=== PATIENT | male | born 1970 | race Caucasian/White ===

== ENCOUNTER 2018-06-19 16:02 | Outpatient (RCR) | payer BC ==
[~2018-06-19 16:02] MED LIST: CITA-145 PO
--- NOTE | 2018-06-20 16:04 | RADIOLOGY IMAGING REPORT ---
FACILITY: [facility] - [place] PATIENT NAME: Tomer Galindo : 1970 MR: [id number] V: [id number] EXAM DATE: ORDERING PHYSICIAN: KATHY BHAKTA TECHNOLOGIST: Location: [facility] [place] Patient: Tomer Galindo : 1970 Visit/Account:[id number] Date of Sevice: 06/20/2018 Exam type: US BIOPSY LOC/INJ THYROID History: Large complex right thyroid nodule Comparison: June 04, 2018. Findings: Informed consent was obtained. The right-sided the patient's neck was prepped and draped usual steri le fashion. Local anesthesia was accomplished 1% lidocaine. Under sonographic guidance four 25-gaug e FNA biopsies were obtained through the large complex nodule in the right lobe the thyroid gland. T he samples were given to the pharmacy technologist for processing. The procedure was accomplished w ithout apparent complication. IMPRESSION: 1. Successful sonographically guided right-sided thyroid biopsy Report Dictated By: Heidi Ramos MD at 06/20/2018 3:59 PM Report E-Signed By: Heidi Ramos MD at 06/20/2018 4:00 PM WSN:[email or web address]
== END 2018-06-20 18:00 | disposition home or self-care (01) ==
LOC: US 16:02 → EDSTATUS 06-20 16:02 → US 06-20 18:00
PROVIDERS: ATTEND Family Medicine
DX: E07.89 Other specified disorders of thyroid (principal)
CPT/HCPCS: 10005; 36415; 76942; 85610; 88104; 88172

== ENCOUNTER 2018-08-04 02:44 | Observation (INO) | payer BC ==
[~2018-08-04] VITALS: Ht 170.2 cm; Wt 85.3 kg
[2018-08-04] VITALS (18 sets, daily range): BP systolic 83–109; BP diastolic 51–78
[2018-08-04] MEDS ORDERED: METOCLOPRAMIDE 10 MG/2 ML SDV ONE (08:01)
[2018-08-04] MEDS ORDERED: LIDOCAINE MPF 1% 5 ML VIAL ONE (08:01)
[2018-08-04] MEDS ORDERED: PROPOFOL EMUL(*) 10MG/ML 20 ML 20 ML ONE (08:01)
[2018-08-04] MEDS ORDERED: ONDANSETRON 4 MG/2 ML VIAL ONE (08:01)
[2018-08-04] MEDS ORDERED: DEXAMETHASONE SOD 4 MG/ML VIAL ONE (08:02)
[2018-08-04 10:51] LABS: PLATELET COUNT, AUTOMATED 275 K/uL (150-450)
[2018-08-04] MEDS ORDERED: MIDAZOLAM 2 MG/2 ML VIAL IVP PRN (11:00)
[2018-08-04] MEDS ORDERED: FAMOTIDINE 20 MG TAB PO ONE (11:00)
[2018-08-04] MEDS ORDERED: LIDOCAINE/SOD BICARB 8.4% SYR ID ONE (11:00)
[2018-08-04] MEDS ORDERED: NORMOSOL R SOLN(*) 1000 ML BAG 1,000 ML IV PRN (11:00)
[2018-08-04] MEDS ORDERED: ceFAZolin(*) 2GM/D5W 50ML 50 ML IVPB ONE (11:10)
[2018-08-04] MEDS ORDERED: fentaNYL CITR 250 MCG/5 ML AMP ONE (11:24)
[2018-08-04] MEDS ORDERED: LIDO/EPI 1% MDV 1:100,000 20ML INFIL ONE (12:19)
[2018-08-04] MEDS ORDERED: LR(*) 1000 ML BAG 1,000 ML IV PRN (14:12)
[2018-08-04] MEDS ORDERED: PROMETHAZINE 25 MG/ML 1 ML AMP IVP PRN (14:15)
[2018-08-04] MEDS ORDERED: ACETAMINOPHEN 325 MG TAB PO PRN (14:15)
[2018-08-04] MEDS ORDERED: MORPHINE 2 MG/ML SYR IVP PRN (14:15)
[2018-08-04] MEDS ORDERED: ONDANSETRON 4 MG ODT TABDP SL PRN (14:15)
--- NOTE | 2018-08-04 14:15 | Post Operative Note ---
Operative Note - ENT Operative Day Date: Aug 04, 2018 Physicians Surgeon: James Biology Laboratory Assistant: Bashir Anesthesia: GETA Diagnosis Pre-Op Diagnosis: uninodular goiter Post-Op Diagnosis: same Procedure Procedure(s): right thyroid lobectomy Specimen Removed:(Maybe N/A): right thyroid lobe and isthmus Complications: none Fluids Fluids: see anesthesia note Estimated Blood Loss: 100 ml RENE HERCULES JR, MD Aug 04, 2018 14:15
[2018-08-04] MEDS ORDERED: PROMETHAZINE 25 MG/ML 1 ML AMP ONE (14:37)
[2018-08-04] MEDS ORDERED: fentaNYL CITR 100 MCG/2 ML AMP ONE (14:41)
--- NOTE | 2018-08-04 15:18 | OPERATIVE REPORT 1 ---
EVENT DATE: August 04, 2018 SURGEON: Davin Ramirez MD ANESTHESIOLOGIST: Kevin Earl MD ANESTHESIA: General endotracheal. HRIS ADMINISTRATOR: Ivette Camejo. PREOPERATIVE DIAGNOSIS Right uninodular goiter. POSTOPERATIVE DIAGNOSIS Right uninodular goiter. PROCEDURE PERFORMED Right thyroid lobectomy and isthmusectomy. INDICATIONS Please refer to the preoperative note. DESCRIPTION OF PROCEDURE The patient was positively identified in the preoperative note. The patient was positively identified in the preoperative area. He was accompanied there by his . Risks again explained, including but were not limited to bleeding, infection, injury to the recurrent laryngeal nerve transient or permanent, dysphonia, injury to the parathyroid glands transient or permanent, hypocalcemia, and those associated with anesthesia. He acknowledged understanding of those risks. He was then brought back to the operative suite, placed supine on the operative table, and anesthesia was administered. Once asleep, the patient was positioned, then prepped and draped in the usual sterile fashion. A 5 cm incision was planned in the favorable neck crease overlying the thyroid gland. Approximately 1 cc of 1% lidocaine with epinephrine was infiltrated. The aforementioned incision was then made with a 15 blade. The underlying subcutaneous tissue was then dissected with Bovie electrocautery. The platysmal muscle identified and divided with Bovie electrocautery. The subplatysmal flaps were elevated superior to the level of the thyroid notch and inferiorly to the level of the sternal notch. Strap musculature was identified and divided along the median raphe. I carefully elevated the strap musculature off of the right thyroid lobe. This was found to be markedly enlarged. The superior pole of vessels were skeletonized and come across with the harmonic scalpel. I then carefully dissected the lobe from the surrounding connective tissue. Both parathyroid glands were felt to be identified and preserved in- situ. I then came across the inferior pole vessels. I then rotated the lobe medially, identified the recurrent laryngeal nerve and traced it to its entrance into the trachea. I then divided the lobe from the trachea at the Sharpe's ligament. I then divided the left lobe from the isthmus with the harmonic scalpel. This was sent for frozen section. This was consistent with a benign goiter. The wound was then copiously irrigated with normal saline solution. A Valsalva maneuver was performed. Hemostasis was assumed. A small piece of Fibrillar Surgicel was placed in the wound bed. A Tam-Clay drain was placed and secured to the skin with a suture. The strap musculature and platysma were then closed. I reapproximated with interrupted Chromic suture. The skin was then closed in a multilayer fashion. The patient was then turned to anesthesia for emergence. ESTIMATED BLOOD LOSS 100 cc. COMPLICATIONS None. MTDD
[2018-08-04] MEDS: ceFAZolin(*) 1 GM VIAL 1 GM in NS(*) 0.9% 100 ML ADDVANT BAG 100 ML IVPB SCH (21:27)
[2018-08-04] MEDS: APAP/HYDROCODONE 325/5 TAB PO PRN (23:58)
[2018-08-05] MEDS: ceFAZolin(*) 1 GM VIAL 1 GM in NS(*) 0.9% 100 ML ADDVANT BAG 100 ML IVPB SCH (04:59)
[2018-08-05 05:02] VITALS: BP 90/57
[2018-08-05 07:41] VITALS: BP 100/68
[2018-08-05] MEDS ORDERED: HYDR-653 PO (08:12)
[2018-08-05] MEDS ORDERED: CEFU500T10 PO (08:12)
--- NOTE | 2018-08-05 08:14 | Short(Outpt) Discharge Summary ---
Discharge Summary Reason for Hosp/Final Diag: (1) Uninodular goiter Status: Resolved Departure Discharge to: Home Discharge Instructions Home Meds Active Scripts Hydrocodone Bit/Acetaminophen (NORCO 5-325 TABLET) 1 Each Tablet, 1 EACH PO Q6H PRN for PAIN for 7 Days, #10 TAB Prov:RENE HERCULES JR, MD 08/05/18 Reported Medications Citalopram Hydrobromide (CITALOPRAM HBR) 20 Mg Tablet, 40 MG PO QHS, #5 TAB 06/03/18 Diet: Regular Activity: No Heavy Lifting, No Exertion Special Instructions: Postop 08/11 at 1:40P. May shower. Do not soak steris. No lifting over 15 lbs. E-Rx to [place]. RENE HERCULES JR, MD Aug 05, 2018 08:14
[2018-08-05] MEDS: APAP/HYDROCODONE 325/5 TAB PO PRN (09:21)
== END 2018-08-05 08:08 | disposition home or self-care (01) ==
LOC: OR 02:44 → MED 15:45 → INTOOBSV 15:45
PROVIDERS: ADMIT Otolaryngology; ATTEND Otolaryngology
DX: E04.1 Nontoxic single thyroid nodule (principal)
CPT/HCPCS: 36415; 60210; 84443; 85025; 88307; G0378; J0690; J1100; J2001; J2270; J2405; J2550; J2704; J2765; J3010; J7050; J7120